=== PATIENT | female | born 1965 | race Caucasian/White ===

== ENCOUNTER 2016-10-04 08:59 | Emergency (ER) | payer BC ==
[2016-10-04] MEDS ORDERED: Aspirin Low Dose CHEW TAB* 81 MG PO ONE (09:04)
[2016-10-04 09:32] LABS: Hematocrit 41 % (35-47); Hemoglobin 13.8 g/dl (12.0-16.0); Mean Corpuscular HGB Conc 34 g/dl (31-36); Mean Corpuscular Hemoglobin 30 pg (27-31); Mean Corpuscular Volume 89 fL (80-97); Mean Platelet Volume 7 um3 (7.4-10.4); Red Blood Count 4.59 10^6/ul (4.0-5.4); Red Cell Distribution Width 13 % (10.5-15); White Blood Count 3.7 10^3/ul (3.5-10.8)
[2016-10-04 10:07] LABS: TSH (Thyroid Stimulating Horm) 1.64 mcIU/mL (0.34-5.60)
--- NOTE | 2016-10-04 10:24 | RAD ---
Indication: Chest pain. Single frontal view of the chest performed at 0940 hours was reviewed. Comparison is made with previous exam dated May 30, 2010. No mediastinal shift is noted. Heart is of normal size and configuration. Lung stephens appear clear. Previously identified pneumonia in the left base is improved. IMPRESSION: NO ACTIVE CARDIOPULMONARY DISEASE IS NOTED.
[2016-10-04 11:30] LABS: Urine Bacteria Absent (Absent); Urine Bilirubin Negative (Negative); Urine Glucose Negative (Negative); Urine Nitrite Negative (Negative)
[2016-10-04] MEDS ORDERED: Ketorolac INJ* 30 MG/ML 1 ML VIAL IV PUSH ONE (11:52)
[2016-10-04 11:58] LABS: Albumin 4.6 g/dL (3.2-5.2); BUN/Creatinine Ratio 19.8 (8-20); Calcium 9.9 mg/dL (8.6-10.3); EGFR African American 79.4 (>60); EGFR Non-African American 61.8 (>60); Globulin 2.9 g/dL (2-4); Potassium 3.5 mmol/L (3.5-5.0); Total Bilirubin 0.5 mg/dL (0.2-1.0); Total Protein 7.5 g/dL (6.4-8.9)
[2016-10-04 12:39] VITALS: BP 117/66
--- NOTE | 2016-10-04 17:48 | ED ---
Katie Lutz Michael, scribed for Donaldo Santos MD on 10/04/16 at 0924 . HPI Chest Pain - HPI Summary HPI Summary: 51 y/o female comes to the ED presenting with constant chest pain that started one hour ago at 0800 this morning. The pt reports that the chest pain is localized and does not radiate to other areas. She describes the chest pain as pressure. The chest pain is aggravated with palpation and deep breathes. She denies n/v and dizziness. The pt has not had similar sx before. The PMHx is significant for right breast CA. She had chemotherapy and radiation therapy. The FHx is significant for CVA and no one in her family had a IL before the age of 50. - History of Current Complaint Chief Complaint: EDChestPainROMI Time Seen by Provider: 10/04/16 09:07 Hx Obtained From: Patient, Medical Records Onset/Duration: Started Hours Ago, Still Present Time of Onset: 08:00 Timing: Constant Initial Severity: Moderate Current Severity: Moderate Pain Intensity: 8 Pain Scale Used: 0-10 Numeric Chest Pain Location: Left Anterior Chest Pain Radiates: No Character: Pressure/Squeezing Aggravating Factor(s): Deep Breaths, Other: - palpation Alleviating Factor(s): Nothing Associated Signs and Symptoms: Positive: Chest Pain. Negative: Dizziness, Nausea, Vomiting - Allergy/Home Medications Allergies/Adverse Reactions: Allergies Allergy/AdvReac Type Severity Reaction Status Date / Time Iodine Allergy Unknown Verified 10/04/16 09:00 Reaction Details Povidone Iodine Allergy Unknown Verified 10/04/16 09:00 [From Betadine] Reaction Details SHELL FISH Allergy Unknown Uncoded 10/04/16 09:00 Reaction Details PMH/Surg Hx/FS Hx/Imm Hx Endocrine/Hematology History: Denies: Hx Diabetes, Hx Systemic Lupus Erythematosus Cardiovascular History: Denies: Hx Congestive Heart Failure, Hx Hypertension, Hx Pacemaker/ICD History: Denies: Hx Dialysis, Hx Renal Disease Musculoskeletal History: Denies: Hx Rheumatoid Arthritis, Hx Osteoporosis Sensory History: Denies: Hx Hearing Aid Psychiatric History: Denies: Hx Panic Disorder - Cancer History Cancer Type, Location and Year: Breast CA in February 2014 Hx Chemotherapy: Yes - BREAST Hx Radiation Therapy: Yes - BREAST - Surgical History Surgery Procedure, Year, and Place: lumpectomy february 2014, [facility] 1998,1998,1999 Infectious Disease History: No Infectious Disease History: Denies: Traveled Outside the [place] in Last 30 Days - Family History Known Family History: Positive: Other - CVA - Social History Occupation: Employed Part-time Lives: With Family Review of Systems Positive: Chest Pain Negative: Vomiting, Nausea Neurological: Negative - dizziness All Other Systems Reviewed And Are Negative: Yes Physical Exam - Summary Physical Exam Summary: VITAL SIGNS: Reviewed. GENERAL: Patient is a well developed and nourished female who is lying comfortable in the stretcher. Patient is not in any acute respiratory distress. HEAD AND FACE: No signs of trauma. No ecchymosis, hematomas or skull depressions. No sinus tenderness. EYES: PERRLA, EOMI x 2, No injected conjunctiva, no nystagmus. EARS: Hearing grossly intact. Ear canals and tympanic membranes are within normal limits. MOUTH: Oropharynx within normal limits. NECK: Supple, trachea is midline, no adenopathy, no JVD, no carotid bruit, no c- spine tenderness, neck with full ROM. CHEST: Symmetric, positive reproduction of tenderness at palpation in the left side of the chest. LUNGS: Clear to auscultation bilaterally. No wheezing or crackles. CVS: Regular rate and rhythm, S1 and S2 present, no murmurs or gallops appreciated. ABDOMEN: Soft, non-tender. No signs of distention. No rebound no guarding, and no masses palpated. Bowel sounds are normal. EXTREMITIES: FROM in all major joints, no edema, no cyanosis or clubbing. NEURO: Alert and oriented x 3. No acute neurological deficits. Speech is normal and follows commands. SKIN: Dry and warm Triage Information Reviewed: Yes Vital Signs On Initial Exam: Initial Vitals Temp Pulse Resp BP Pulse Ox 98.0 F 93 18 134/95 100 10/04/16 09:01 10/04/16 09:01 10/04/16 09:01 10/04/16 09:01 10/04/16 09:01 Vital Signs Reviewed: Yes Diagnostics - Vital Signs Vital Signs Temp Pulse Resp BP Pulse Ox 10/04/16 09:01 98.0 F 93 18 134/95 100 - Laboratory Lab Results: Lab Results 10/04/16 Range/Units 09:20 WBC 3.7 (3.5-10.8) 10^3/ul RBC 4.59 (4.0-5.4) 10^6/ul Hgb 13.8 (12.0-16.0) g/dl Hct 41 (35-47) % MCV 89 (80-97) fL MCH 30 (27-31) pg MCHC 34 (31-36) g/dl RDW 13 (10.5-15) % Plt Count 187 (150-450) 10^3/ul MPV 7 L (7.4-10.4) um3 Neut % (Auto) 44.0 (38-83) % Lymph % (Auto) 38.9 (25-47) % Douglas % (Auto) 11.9 H (1-9) % Eos % (Auto) 4.6 (0-6) % Baso % (Auto) 0.6 (0-2) % Absolute Neuts (auto) 1.6 (1.5-7.7) 10^3/ul Absolute Lymphs (auto) 1.4 (1.0-4.8) 10^3/ul Absolute Monos (auto) 0.4 (0-0.8) 10^3/ul Absolute Eos (auto) 0.2 (0-0.6) 10^3/ul Absolute Basos (auto) 0 (0-0.2) 10^3/ul Absolute Nucleated RBC 0 10^3/ul Nucleated RBC % 0.1 Result Diagrams: 10/04/16 09:20 10/04/16 09:20 Lab Statement: Any lab studies that have been ordered have been reviewed, and results considered in the medical decision making process. - Radiology CXR Xray Interpretation: No Acute Changes Radiology Interpretation Completed By: Radiologist Chest Pain Course/Dx - Course Course Of Treatment: 51 y/o female comes to the ED presenting with constant chest pain that started one hour ago at 0800 this morning. The pt reports that the chest pain is localized and does not radiate to other areas. She describes the chest pain as pressure. The chest pain is aggravated with palpation and deep breathes. She denies n/v and dizziness. The pt has not had similar sx before. The PMHx is significant for right breast CA. She had chemotherapy and radiation therapy. The FHx is significant for CVA and no one in her family had a IL before the age of 50. The blood work was within normal limits. The first Troponin was 0.00 and the second Troponin was 0.00. The EKG showed NSR at [address] elevation. The CXR showed no active acute cardopulmonary disease. The patient was given Toradol for the pain. The pain was alleviated and the patient will be discharged. She will also follow up with her PCP. She is hemodynamically stable and alert/oriented x3. I discussed all the findings and test results with the patient. Patient was instructed to return to the emergency room immediately if any of the symptoms return or worsens. Plan of care was discussed with the patient and understands and agrees. All questions were answered at patient satisfaction. There were no further complaints or concerns. Lung exam before discharge: CTA B/L. Good air exchange. No wheezing or crackles heard. CVS: S1 and S2 present. No murmurs appreciated. Patient is alert and oriented x 3. Patient is hemodynamically stable. Patient will be discharged home with follow up chief financial officer in the next 2-3 days - Chest Pain Differential Diagnosis/HQI/PQRI: Acute IL, ACS, Angina, CHF, Chest Wall, GI Disease, Lower Respiratory Infection - Diagnoses Provider Diagnoses: Atypical chest pain Discharge - Discharge Plan Condition: Stable Disposition: HOME Prescriptions: Ibuprofen TAB* [Motrin TAB* 600 MG] 600 mg PO Q6H PRN #20 tab PRN Reason: Pain Patient Education Materials: Chest Wall Pain (ED) Referrals: Luis Alberto Foster MD [Primary Care Provider] - Additional Instructions: You will follow up with Dr. Foster within the next 2-3 days. The documentation as recorded by the Katie berrios Michael accurately reflects the service I personally performed and the decisions made by , Donaldo Santos MD.
== END 2016-10-04 13:39 | disposition home or self-care (01) ==
LOC: ED 08:59
DX: R07.89 Other chest pain (principal)
CPT/HCPCS: 36415; 71010; 80053; 81003; 81015; 82550; 82553; 83605; 83735; 83880; 84443; 84484; 85025; 85379; 93005; 99283; A9270-GY; J1885